=== PATIENT | male | born 1970 | race Caucasian/White ===

== ENCOUNTER → 2017-08-29 11:28 | Outpatient (CLI) | payer MEDICAID, SELFPAY ==
[2017-08-29 14:12] VITALS: BP 135/88; PULSE 86; RESP 17; TEMP 37.3; O2SAT 97; BMI 20.3
--- NOTE | 2017-08-29 14:37 | SDCEKG_ITS ---
Test Reason : Blood Pressure : / mmHG Vent. Rate : 080 BPM Atrial Rate : 080 BPM P-R Int : 146 ms QRS Dur : 094 ms QT Int : 346 ms P-R-T Axes : 079 043 068 degrees QTc Int : 399 ms Normal sinus rhythm Possible Left atrial enlargement Borderline ECG Confirmed by GIULIANA QUINTEROS, SALVATORE ([id number]), news videotape editor SIL CARNEY ([id number]) on 08/30/2017 9:09:48 AM Referred By: Chi Zambrano Confirmed By:SALVATORE GIORDANO MD
[2017-08-29 15:04] LABS: Absolute Lymphocyte Count 1.58 X10^3/ul (0.83-4.51); Absolute Neutrophil Count 4.8 X10^3/uL (2.0-7.7); Basophil# 0.03 X10^3/uL; Basophil% 0.4 % (0-1); Eosinophil# 0.12 X10^3/uL; Eosinophils% 1.7 % (0-5); Hematocrit 43.2 % (40-54); Hemoglobin 14.5 g/dl (13.0-16.5); Lymphocyte # 1.58 X10^3/ul (4.0); Mean Corp Hgb Conc 33.6 g/gl (32-36); Mean Corpuscular Hgb 30.1 pg (27.0-32.0); Mean Corpuscular Volume 89.6 fL (80-94); Mean Platelet Vol. 10.7 fl (6.2-12.0); Monocyte# 0.69 X10^3/uL; Monocyte% 9.6 % (0-10); Neutrophil # 4.76 X10^3/uL (2.7-7.7); Neutrophil % 66.2 % (47-70); POSITIVE COUNT NO; POSITIVE DIFFERENTIAL NO; POSITIVE MORPHOLOGY NO; Platelet Count 228 K/mm3 (150-450); RBC Distribution Width CV 12.6 % (11.6-14.6); RBC Distribution Width SD 41.1 fl (35.1-43.9); Red Blood Count 4.82 M/mm3 (4.6-6.2); White Blood Count 7.2 K/mm3 (4.4-11.0)
[2017-08-29 15:31] LABS: Anion Gap 3 (5-15); BUN 18 mg/dL (7-18); BUN/Creat Ratio 19.1 RATIO (10-20); Calcium,Total 9.5 mg/dL (8.5-10.1); Chloride 101 mmol/L (98-107); Creatinine, Serum 0.94 mg/dL (0.70-1.30); EST Glomerular Filtration Rate 91 mL/min (>60); Est Glom Filt Rate - Afr Amer 110 mL/min (>60); Glucose 86 mg/dL (74-106); Sodium Level 138 mmol/L (136-145)
--- NOTE | 2017-09-01 15:46 | CASEMGMT ---
RN JENNIFER attempted to call patient regarding discharge needs after upcoming surgery. No answer, voice message left with return contact information. Per the preadmission assessment patient plans to return home at discharge, has walker and crutches, and mother can assist with care. ROWAN RODRIGUEZ will follow up with patient after surgery and will assist with discharge needs.
[2017-09-05] VITALS (23 sets, daily range): BP systolic 101–141; BP diastolic 62–97; PULSE 64–120; RESP 16–18; TEMP 36.2–37.4; O2SAT 98–100; BMI 20.3
[2017-09-05] MEDS: Celecoxib 200 MG Capsule 400 MG PO (11:23)
[2017-09-05] MEDS: Acetaminophen 500 MG Tablet 1000 MG PO (11:23)
[2017-09-05] MEDS: oxyCODONE HCl Cr 10 MG Tablet PO (11:24)
[2017-09-05] MEDS: Cefazolin 2 GM in 0.9% Normal Saline 100 ML IV (14:46)
--- NOTE | 2017-09-05 15:07 | ECHOD_ITS ---
Reason For Study: arrhythmia Procedure This was a 2D Doppler, Color Flow transthoracic echocardiogram. The exam was of fair technical quality due to diminished acoustic windows. The study was technically difficult. Exam performed in PACU. Left Ventricle Normal LV size. Left ventricular systolic function is normal. The estimated ejection fraction is 55 %. Unable to assess diastolic dysfunction due to arrhythmia. No regional wall motion abnormalities noted. Right Ventricle Normal RV size. Normal systolic function. Atria Normal left atrium. Normal right atrium. No doppler evidence for ASD. Mitral Valve There is no mitral annular calcification. Normal mitral valve. Trivial mitral valve insufficiency. Tricuspid Valve Normal tricuspid valve. Trivial tricuspid valve insufficiency. Right ventricular systolic pressure estimated to be 23 mmHg. Aortic Valve Trisinus/trileaflet aortic valve. Mild focal aortic valve thickening. Pulmonic Valve The pulmonic valve is not well visualized. Great Vessels Normal aortic root. Pericardium/Pleural No pericardial effusion. MMode/2D Measurements & Calculations LVIDd: 4.7 cm IVSd: 0.93 cm LVOT diam: 2.4 cm LVIDs: 3.6 cm LVPWd: 0.91 cm LVOT area: 4.6 cm2 RVDd: 2.8 cm FS: 23.7 % Ao root diam: 3.5 cm LAV(MOD-bp): 39.3 ml LA A4 area: 15.0 cm2 LAV(MOD-bp) Indexed: 19.6 ml/m2 LAV(MOD-sp2): 39.9 ml LAV(MOD-sp4): 35.4 ml RA A4 area: 16.8 cm2 Doppler Measurements & Calculations MV E max hema: 88.4 cm/sec Ao V2 max: 107.1 cm/sec LV V1 max: 100.1 cm/sec Ao max P.6 mmHg LV V1 max P.0 mmHg DEAN(V,D): 4.3 cm2 PA V2 max: 74.0 cm/sec TR max hema: 225.6 cm/sec TR max P.4 mmHg Interpretation Summary The study was technically difficult. Left ventricular systolic function is normal. The estimated ejection fraction is 55 %. Trivial mitral valve insufficiency. Trivial tricuspid valve insufficiency. Mild focal aortic valve thickening. Right ventricular systolic pressure estimated to be 23 mmHg. Unable to assess diastolic dysfunction due to arrhythmia. Ordering Physician: Don Sears Referring Physician: Chi Zambrano Performed By: Lesly Medrano, DEVEN, RVT
[2017-09-05 15:52] LABS: Anion Gap 7 (5-15); BUN 11 mg/dL (7-18); BUN/Creat Ratio 9.9 RATIO (10-20); Calcium,Total 9.2 mg/dL (8.5-10.1); Chloride 106 mmol/L (98-107); Creatinine, Serum 1.11 mg/dL (0.70-1.30); EST Glomerular Filtration Rate 76 mL/min (>60); Est Glom Filt Rate - Afr Amer 91 mL/min (>60); Glucose 80 mg/dL (74-106); Potassium 4.5 mmol/L (3.5-5.1); Sodium Level 143 mmol/L (136-145)
--- NOTE | 2017-09-05 16:45 | SUR.PHASEI ---
Addendum entered by Temi Elizondo 09/05/17 16:47: BETWEEN 15:30 AND 1600, PATIENT HAD EKG WITH RHYTHM STRIP, CARDIAC ECHO AND CMP LAB WORK DRAWN. Original Note: Addendum entered by Temi Elizondo 09/05/17 16:47: Original Note: AT APPROXIMATELY 1630, PATIENT CONVERTED TO SINUS RHYTHM, RATE 60s. PATIENT RESTING COMFORTABLY WITH NO C/O PAIN OR SOB
[2017-09-05] MEDS: Metoprolol Tartrate 5 MG/5 ML Vial IV (17:40)
--- NOTE | 2017-09-05 18:04 | CON.PCM_ITS ---
Problem List (1) SVT (supraventricular tachycardia) Status: Acute (2) Atrial fibrillation Status: Chronic Qualifiers: Atrial fibrillation type: paroxysmal Qualified Code(s): I48.0 - Paroxysmal atrial fibrillation Reason for Consult Date of Consultation: 09/05/17 History of Present Illness: The patient is a 47 year old white male with a past cardiovascular history which has included underlying paroxysmal atrial fibrillation who now presents for evaluation of supraventricular tachycardia. The patient has previously been followed by the [facility] for concerns of lone paroxysmal atrial fibrillation. It appears that0 08/27/2004 he underwent a transthoracic echocardiogram. His left ventricle was thought to be normal with an LVEF of 60% . The left atrial cavity was considered top normal. There was trivial MR. The conclusion was normal LV size, systolic function, and diastolic function; normal study. He was subsequently evaluated in cardiovascular consultation by Dr. Montague at that time. Based upon his impression he had lone paroxysmal atrial fibrillation which was totally suppressed on small dose of daily beta-magno therapy. He considered contributing factors which included concerns of moderate alcohol use at the time. He was recommended for avoidance of alcohol, continued medical management, and depending upon his course consideration for anticoagulant therapy. The patient states that over a period of time he found that his episodes became less and less frequent. He found that if he did not have adequate oral intake, coupled with his beta-magno, that he became somewhat hypotensive and lightheaded and/or sleepy . He was subsequently able to discontinue his beta- magno. He states he has been without recurrent rhythm disturbances and without the need for additional medical therapy for quite some time now. To the best of his knowledge she has had no other cardiovascular condition. He states that he has been avoiding any alcohol intake. He does know that if he does not and eat frequent meals that he can sense, sometimes, palpitations. He states in the past he was told to perform vasovagal maneuvers which sometimes would help interrupt his elevated heart rate He has been undergoing evaluation care for a left hip related issue which he states is a hereditary issue with an osteoarthritis. He was brought to the hospital today for left hip replacement surgery. He states he has been since prior to midnight last night. He was being prepared with his epidural for spinal anesthesia. He was subsequently noted on cardiac rhythm strip to develop an underlying narrow complex regular tachycardia at approximately 150 bpm thought compatible with an underlying SVT. According to Dr. Fink of anesthesiology he was treated with adenosine 12 mg IV push ?1 and had abrupt termination to sinus rhythm. This suggested an underlying reentry mechanism tachycardia. However he was subsequently noted to have recurrence of an underlying tachycardia. He was then treated with IV Lopressor 5 mg ?1. During that time his heart rate went up and then subsequently began to decline. He was then thought to be in a sinus tachycardia at approximately 115-120 bpm. His surgery was canceled and he was returned to the recovery area. He was then allowed to have oral fluids. After drinking oral fluids he was noted to have again abrupt termination, spontaneously, to what appeared to be normal sinus rhythm with ventricular rates of 60-70 bpm. However, he was subsequently noted to reenter an underlying tachycardia at approximately 115 bpm appearing compatible with an underlying ectopic atrial rhythm/tachycardia. During this time he maintain adequate blood pressure. He denied any obvious palpitations. He denied any obvious chest discomfort or difficulty breathing. He continued to recover from his spinal anesthesia with noticing return of sensation in his lower back and hips. As he was noted to return to an underlying narrow complex regular tachycardia dysrhythmia he underwent further evaluation. This included laboratory studies. He had no obvious electrolyte dysfunction. His troponin I level was negative. He also had a transthoracic echocardiogram. This demonstrated the following results. Technically diminished quality study: Left ventricular systolic function considered normal with an LVEF of 55%; trivial MR; trivial TR ; mild focal aortic valve thickening; estimated RV systolic pressure 23 mmHg; unable to assess diastolic dysfunction due to arrhythmia He was maintaining a narrow complex regular tachydysrhythmia he underwent additional evaluation with carotid artery auscultation. This was thought to be negative for any obvious carotid artery bruits. Thus, he underwent evaluation with carotid artery massage. This was performed bilaterally without any obvious interruption of his underlying cardiac tachydysrhythmia. He was then treated with additional IV Lopressor 5 mg IV push ?1. He had no significant alteration in his underlying cardiac rate and rhythm or blood pressure. He was then treated with adenosine 12 mg IV push ?1. He was noted to have abrupt termination of his underlying narrow complex regular tacky dysrhythmia, occurring at approximately 115 bpm, into an underlying normal sinus rhythm between 60 and 70 bpm. He then appeared to remain in normal sinus rhythm without adequate blood pressure with no other obvious associated symptoms or complaints. Past Medical History Allergies/Adverse Reactions: Allergies No Known Allergies Allergy (Verified 08/29/17 14:09) Home Medications: Ambulatory Orders Medication Instructions Recorded Ibuprofen 200 mg PO PRN PRN 08/29/17 traMADol [Ultram (G)] 100 mg PO Q6H PRN PRN 08/29/17 Past Medical History (Chronic Problems): Chronic Problems Atrial fibrillation (Chronic) Smoking Status: Never smoker Alcohol: None Drugs: None Review of Systems - Review of Systems General: Denies: Fever, Night Sweats, Fatigue Cardiovascular: Denies: Chest Discomfort, Shortness of Breath, Orthopnea, PND, Peripheral Edema, Palpitations, Lightheadedness, Dizziness, Near Syncope, Syncope Respiratory: Denies: Cough, Sputum Production, Hemoptysis Gastrointestinal: Denies: Hematemesis, Hematochezia, Melena Genitourinary: Denies: Dysuria, Hematuria Skin: Denies: Rash Subjectve: This is a 47-year-old thin white male who appears resting comfortably in no acute distress. Objective: Vital Signs Temp Pulse Resp BP Pulse Ox 97.2 F L 70 16 118/70 100 09/05/17 15:10 09/05/17 17:00 09/05/17 17:00 09/05/17 17:00 09/05/17 17:00 Oxygen Flow Rate (L/min) 2 Oxygen Delivery Method Room Air Weight: 162 lb 11.218 oz Body Mass Index (BMI) 20.3 General: Awake, Alert, Oriented x 3, Cooperative, No Acute Distress HEENT: Atraumatic, PERRL, EOMI, Sclera Non Icteric Oral: Moist Mucosa Neck: Supple, Good ROM, No JVD Lungs: Clear to auscultation Cardiovascular: Regular Rhythm, Normal S1, Normal S2 Vascular: No Carotid Bruits Abdomen: Bowel Sounds Present, Soft, Non Tender Extremities: No Cyanosis, No Clubbing, No edema 09/05/17 15:22: Sodium 143, Potassium 4.5, Chloride 106, Carbon Dioxide 30.0, Anion Gap 7, BUN 11, Creatinine 1.11, Est GFR (MDRD) Af Amer 91, Est GFR (MDRD) Non-Af 76, BUN/Creatinine Ratio 9.9 L, Glucose 80, Calcium 9.2, Magnesium 2.0, Troponin I < 0.02 Rhythm: As noted above EKG: Preoperative 12-lead electric cardiogram from 08/29/2017 demonstrated normal sinus rhythm with possible left atrial enlargement ECHO: As noted above 09/05/2017: Technically diminished quality study: Left ventricular systolic function considered normal with an LVEF of 55%; trivial MR; trivial TR; mild focal aortic valve thickening; estimated RV systolic pressure 23 mmHg; unable to assess diastolic dysfunction due to arrhythmia Assessment/Plan 1. Supraventricular tachycardia (reentry mechanism) The patient does appear to have concerns of an underlying supraventricular tachycardia. The etiology is unclear although though there are concerns as to whether this is related to his underlying history of tachydysrhythmias as well as being exacerbated by his n.p.o. status and/or potentially his elevated adrenaline type status secondary to his anxiety of his pending surgical procedure. He was treated with IV adenosine which did reportedly convert him to sinus rhythm. He then returned with intermittent episodes of underlying tachydysrhythmias appearing compatible, based on altered P-wave morphology, possible ectopic atrial rhythm/tachycardia. During this time he had no obvious symptoms or complaints. His blood pressure was maintained. As noted above he received additional medical management with IV Lopressor without significant change in his underlying rate and rhythm her blood pressure. Thus he received another attempt at adenosine 12 mg IV push ?1. He then had abrupt termination of his narrow complex tachydysrhythmia to normal sinus rhythm with ventricular rates between 60 and 70 bpm. He had a follow-up 12-lead ECG that demonstrated normal sinus rhythm with no acute ECG changes. The present time felt the patient should return to an underlying rate limiting medication. As he did not appear to respond to his IV beta-magno therapy today it was felt reasonable that he have an attempt at a calcium channel antagonist. Hopefully this will help maintain rate and rhythm control. It was not felt that he needed to be immediately placed on additional antiarrhythmic therapy. However, it was felt the patient should have continued outpatient cardiovascular follow-up. This would include consideration for EP consultation for EPS/RFA. 2. Paroxysmal atrial fibrillation The patient has a history of paroxysmal atrial fibrillation as noted above. He has been evaluated and treated as noted above. He did not appear to have recurrent paroxysmal atrial fibrillation this day. It appeared his cardiac dysrhythmias day, especially based upon his response to IV adenosine therapy, was more related to an underlying reentry mechanism tachydysrhythmia. He will continue further evaluation as deemed appropriate. He will continue medical management as noted above. Overall, the tentative plan, as long as the patient remains without obvious symptoms, in sinus rhythm, and hemodynamically stable, from a cardiac standpoint , he would be placed on oral medical management as noted above with plans for future outpatient cardiovascular follow-up and referral to electrophysiology for consideration for EPS/RFA. In the interim, based upon the information above, if the patient remains symptomatically and hemodynamically stable on his medications, he should be able to proceed with his orthopedic surgery procedure barring unforeseen events. He would require continued monitoring of his cardiac rate, rhythm, and blood pressure during and after his procedure. He should continue his medical therapy pre and post procedure as best as possible. Comment: The patient's case has been discussed and reviewed and length with Dr. Fink of anesthesiology. Comment: Time involved in the patient's evaluation and care: 90 minutes.
[2017-09-05] MEDS: Adenosine 6 MG/2 ML Syringe 12 MG IV (18:10)
[2017-09-05] MEDS: dilTIAZem CD 120 MG Capsule PO (19:05)
== END ==
PROVIDERS: Anesthesiology; Family Provider Family Medicine Geriatric Medicine; PCP Family Medicine Geriatric Medicine; Visit Provider Specialist
PROC: (CPT 27284; principal; 2017-09-05 12:45)
DX: I47.1 Supraventricular tachycardia (principal); I48.0 Paroxysmal atrial fibrillation; M16.12 Unilateral primary osteoarthritis, left hip
CPT/HCPCS: 36415; 80048; 82040; 83735; 84484; 85025; 87077; 87081; 93005; 93306; J7120; Q9957; J0153; J2405

== ENCOUNTER → 2017-08-31 08:53 | Outpatient (CLI) | payer MEDICAID, SELFPAY ==
[2017-08-31 12:31] LABS: AST(SGOT) 15 U/L (15-37); Alanine Aminotransfer ALT/SGPT 21 U/L (16-61); Albumin, Serum 4.3 g/dL (3.2-5.0); Alkaline Phosphatase 64 U/L (45-117); Bilirubin, Direct 0.12 mg/dL (0.00-0.30); Globulin 3.5 g/dL (2.2-4.2); Protein, Total 7.8 g/dL (6.4-8.2); Thyroid Stim Hormone (TSH) 4.15 uIU/mL (0.358-3.74)
[2017-08-31 12:38] LABS: International Normalized Ratio 1.1; Partial Thromboplast Time 30.8 Seconds (24.1-36.2); Prothrombin Time (Protime)PT. 14.1 SECONDS (11.7-14.9)
== END ==
PROVIDERS: Family Provider Family Medicine Geriatric Medicine; PCP Family Medicine Geriatric Medicine; Visit Provider Family Medicine Geriatric Medicine
DX: Z01.818 Encounter for other preprocedural examination (principal); R53.83 Other fatigue
CPT/HCPCS: 36415; 80076; 84443; 85610; 85730

== ENCOUNTER 2017-09-20 06:02 | Inpatient (IN) | payer MEDICAID, SELFPAY ==
--- NOTE | 2017-09-15 15:29 | CASEMGMT ---
ROWAN RODRIGUEZ attempted to call patient regarding discharge needs after upcoming surgery. No answer and voice message left with return contact information. Per pre-admission assessment patient has crutches and walker at home and plans to return home with assistance from his mother. ROWAN RODRIGUEZ will follow up with patient after surgery and will assist with discharge needs.
[2017-09-20] VITALS (17 sets, daily range): BP systolic 105–133; BP diastolic 62–90; PULSE 64–92; RESP 16–18; TEMP 35.9–36.9; O2SAT 96–100; BMI 20.3
--- NOTE | 2017-09-20 | HIP_PTH ---
PATIENT: ALIVIA ZAVALA LOC: [facility] U#:[id number] AGE/SX: 47/M ROOM: MN314 RE09/20/[address]: Dr. Semaj Duncan DO : 1970 BED: 1 DIS: 09/21/2017 SPEC #: [id number] RECD: 09/20/17 15:37 STATUS: VAL REQ #: [id number] DEONNA: 09/20/17 00:[address]: Chi Zambrano DEPT: SURGICAL PATHOLOGY RECD BY: Nils Campos ENTERED: 09/21/17 08:13 SP TYPE: TOTAL HIP OTHR DR: MD Dr. Semaj Schaefer DO Dr. Steven Widmer, MD Dr. Tai Chi Kwok, MD Tissues: Hip, NOS Procedures: Decalcification bone/plaque Surgery Specimen Level IV Comments: @ Ordering doctor for DEC edited from to DR.SWIDME Curtis by SAÚL at 09/21/17 1404 @ Ordering doctor for SUIV edited from to @ by SAÚL at 09/21/17 1407 @ Submitting doctor edited from to @ by SAÚL at 09/21/17 1404 HEADER OPERATION: Left total hip anterior approach PRE-OP DIAGNOSIS: Osteoarthritis left hip TISSUE SUBMITTED: Femoral head debrided bone and tissue - left MICROSCOPIC DIAGNOSIS Femoral head bone and tissue, left, total hip replacement/resection: Femoral head with degenerative osteoarthritic changes. ANDREE:bekah 09/28/17 MICROSCOPIC DESCRIPTION Slides are reviewed. GROSS DESCRIPTION Received is one container designated femoral head, debrided bone and tissue, left. The specimen consists of a femoral head measuring 7 x 6 x 5.5 cm. Also present in the container are multiple detached pieces of bone most likely portion of femoral neck measuring in aggregate 9 x 5 x 3 cm. Also present in the container are multiple pieces of bone reamings and smaller detached pieces of bone measuring in aggregate 10 x 8 x 3 cm. No soft tissue is identified. The articular surface displays prominent osteophyte formation, eburnation and bone erosion. Architectural Project Manager sections are submitted in two cassettes after decalcification as follows: 1 ? bone reamings, 2 ? femoral head. / ANDREE:bekah 09/21/17 TC:5 CPT: 12745, 14060
[2017-09-20] MEDS: oxyCODONE HCl Cr 10 MG Tablet PO (07:14)
[2017-09-20] MEDS: Celecoxib 200 MG Capsule 400 MG PO (07:14)
[2017-09-20] MEDS: Acetaminophen 500 MG Tablet 1000 MG PO ×3 (07:14→21:54)
[2017-09-20] MEDS: Lactated Ringers 1,000 ML 999 ML IV (07:34)
--- NOTE | 2017-09-20 08:24 | RAD_ITS ---
STUDY: X-RAY - PELVIS AND LEFT HIP REASON FOR EXAM: Male, 47 years old. Total hip replacement. TECHNIQUE: Radiological exam, hip, unilateral, with pelvis when performed; 1 view COMPARISON: None. FINDINGS: Intraoperative imaging provided for left total hip replacement. There is good alignment. RAD/Hip 1 view with Pelvis IMPRESSION: Left total hip replacement. There is good alignment. Electronically Signed: Kush Vargas MD at 10:39 EDT Tel [phone], Service support ,
[2017-09-20] MEDS: Cefazolin 2 GM in 0.9% Normal Saline 100 ML IV (08:34)
--- NOTE | 2017-09-20 10:38 | PCM.OPRPT ---
Report of Operation Date of Procedure: 09/20/17 Pre-Operative Diagnosis: Left hip hypertrophic primary osteoarthritis Post-Operative Diagnosis: Left hip hypertrophic primary osteoarthritis Surgery/Procedure Performed:: Left direct anterior total hip replacement Description of Surgical Findings:: Stable hip. Left leg was left slightly shorter on examination secondary to chronic 15? knee contracture. Radiographs showed equal leg length based on lesser trochanters [facility] director: Bhavana Kate Type of Anesthesia:: Spinal Anesthesiologist: Frederic Leon Special Medications: 2 g Ancef, 1 g TXA at incision, 1 g TXA closure, 10 mg Decadron, joint cocktail (5 mg Duramorph, 30 mL of 0.5% Ropivicaine, 1000 units of epinephrine, 30 mg of Toradol) Specimen's removed: Bone fragments were sent Estimated Blood Loss (mL): 250 Fluids Replaced: 1200 mL crystalloid Description of Procedure: Components used: 1. Accolade 2 Lisa femoral stem size 8 127? 2. Lisa trident acetabular shell size 64 mm 3. Guion X3 polyethylene H 4. Guion Biolox delta 360mm, []mm femoral head Brief history operative indications: 47 yo m who failed conservative measures for their hip osteoarthritis. X-rays were consistent with osteoarthritis including joint space narrowing, osteophyte formation and subchondral cysts. Total hip replacement was discussed with the patient with risks and benefits including but not limited to blood loss, DVTs, PEs, neurovascular damage, dislocation, general risks of anesthesia including loss of life. Patient demonstrated an understanding medical clearance is obtained the patient was consented for surgery. Procedure: On the date of procedure the patient's L hip was marked in the preoperative area. Patient was then taken back to the operating room where anesthesia assumed control of the C-spine and airway and administered anesthetic. Patient was transferred to the operating table and placed in the supine position. The hips were placed at the break of the bed and a sacral bump was placed. The L lower extremity was then prepped out in a sterile fashion using chlorhexidine while the surgeon scrubbed. The PA was vital in the positioning of the patient. Upon reentering the room the L lower extremity was draped in the standard orthopedic fashion and the incision was marked. A timeout was called and everyone agreed upon the side, the site, the procedure be performed, antibody given, and patient's identity. At this time incision was made through skin, subcutaneous tissue, and fat down to fascia. The fascia was then incised and the TFL was retracted laterally. A retractor was placed on the lateral border of the femoral neck. Attention was directed to the inferior portion of the approach and all crossing vessels were identified and appropriately coagulated. A retractor was then placed on the medial portion of the femoral neck. The anterior capsule was then cleared of all soft tissue and then H shaped capsulotomy was made. The retractors were then placed inside the capsule. The femoral neck was identified and a cleanup cut was made. At this time a power corkscrew was used to remove the femoral head. Attention was then turned toward the acetabulum where the soft tissues were appropriately retracted and the acetabulum was sequentially reamed to 63 mm. A 64 mm cup was then selected and impacted into place. Acetabular liner was impacted into place and locking mechanism was verified. The position of the acetabular cup was then verified under live fluoroscopy. Attention was then turned to the femur. Soft tissue releases on the medial and lateral femoral neck were appropriately done, the leg was externally rotated and lateralized. A Crawford retractor was placed medially and proximally to the greater trochanter this allowed appropriate visualization and exposure of the femoral canal. Rongeour was then used to remove excess lateral bone. A canal finder and entry broach were used to open the proximal canal. Once we verified we were down the femoral canal we subsequently broached up to a size 8 femur. The appropriate neck was placed in the previously selected head was trialed with a 0 mm neck. Traction was pulled and the hip was reduced with internal rotation. Once it was appropriately reduced and stability was checked. There was minimal shuck, equal leg lengths and appropriate stability with hyperextension and external rotation as well as with 90? flexion and internal rotation. Fluoroscopy was then also used to verify the position of the components and leg lengths using the contralateral side for comparison. The trial components were then dislocated the proximal femur was again exposed and the components were removed from the wound. The final components were verified and opened. The wound was copiously irrigated out with normal saline. The acetabulum was checked for any residual debris. The final components were placed and impacted. Traction and internal rotation were again used to reduce the hip. After adequate reduction the hip remained stable with appropriate leg lengths. The final components were once again checked with live fluoroscopy and were found to be satisfactory. The wound was then copiously irrigated with normal saline once more, and hemostasis was obtained. Closure was then done using #1 Vicryl runner to close the fascia. A 2-0 vicryl interuppted sutures were used to close the subcutaneous skin. A 3-0 Monocryl and Steri-Strips were used for final skin closure. A Silverlon dressing was placed. Patient was awakened by anesthesia and transferred to the rcape coral. Patient was then transferred to the PACU for recovery. Postoperative plan: Patient will get 24 hours postop antibiotics. Patient will get in-house physical therapy and will be weight-bear as tolerated. Patient will follow up in office in 2 weeks for a wound check and x-rays. Due to the patient's hypertrophic osteoarthritis we will place him on Celebrex 200 mg twice daily for the first 2 weeks followed by 20 mg daily for an additional 4 weeks. To be stopped at 6 weeks postop. Grafts/Implants Used: Lisa Accolade 2 - Complications none - Admit VTE Documentation VTE Present on Admission: No VTE Mechan Device Prophylaxis: SCD's, Thigh High RICH Hose VTE Pharm Prophylaxis ordered?: Yes
--- NOTE | 2017-09-20 11:00 | RAD_ITS ---
STUDY: X-RAY - PELVIS AND LEFT HIP REASON FOR EXAM: Male, 47 years old. Total hip replacement. TECHNIQUE: Radiological exam, hip, unilateral, with pelvis when performed; 2 or 3 views. COMPARISON: None. FINDINGS: The patient is status post left total hip replacement. There is good alignment. Postoperative soft tissue changes. Moderate degree of osteoarthritis of the right hip joint with evidence of right femoral acetabular impingement. RAD/Hip Min 2 Views (Portable) IMPRESSION: Status post left total hip replacement. There is good alignment. Osteoarthritis of the right hip joint with femoral acetabular impingement Electronically Signed: Kush Vargas MD at 13:24 EDT Tel [phone], Service support ,
[2017-09-20] MEDS: Cefazolin 1 GM/50 ML BAG IV ×2 (14:18→21:54)
[2017-09-20] MEDS: Famotidine 20 MG Tablet PO (14:19)
--- NOTE | 2017-09-20 16:17 | PN_ITS ---
Subjective: Pt resting comfortably in chair at bedside. He has already ambulated down the arora without difficulty. He has no pain. He is relieved that the preop pain is gone. He also has chronic numbness and tingling 2/2 disc issues in his left leg and foot which has improved since surgery. He has no nausea or vomiting, no SOB or cough. He has no racing, palp, SOB, dizziness, LH. He had surgery cancelled on September 05 to when he went into SVT. He followed up with [facility] who placed him on cartia and scheduled him to have an ablation later this month, diagnosing him with an ectopic rhythm. He has not had any issues since starting cartia. He has no CP. He denies other medical problems. No prior difficulties with other surgeries in his past. - Physical Exam General: Alert, Oriented x3, Cooperative HEENT: Atraumatic, PERRLA, EOMI, Normocephalic Neck: Supple, No JVD, Negative Carotid Bruits Lungs: Clear to auscultation, Normal air movement Cardiovascular: Regular rate, No murmurs Abdomen: Bowel Sounds Present, Soft, Non Tender Extremities: No edema, Capillary Refill Less than 3 Seconds Skin: No rashes, No breakdown Musculoskeletal: No Tenderness to Palpation of Joints or Extremities Neurological: Cranial nerves II-XII grossly intact Psych/Mental Status: Normal Affect, Appropriate, Alert and oriented to time, place, person, mood and affect Vital Signs Temp Pulse Resp BP Pulse Ox 97.3 F L 79 18 120/73 100 09/20/17 14:07 09/20/17 14:07 09/20/17 14:07 09/20/17 14:07 09/20/17 14:07 Oxygen Delivery Method Room Air Weight: 71.8 kg Body Mass Index (BMI) 20.3 Intake and Output for Last 24 Hours 09/18/17 09/19/17 09/20/17 23:59 23:59 23:59 Intake Total 1500 / 1500 Balance 1500 / 1500 Medical Necessity - Tobacco Use Smoking Status: Never smoker Assessment/Plan 1. Left hip arthropathy s/p left total hip post op d#[address] Zambrano - minimal pain, pt ambulatory. No post op complications so far. 2. Hx SVT ectopic rhythm at last surgical attempt- continue cartia. Outpatient follow up at [facility] for ablation. Pt of Dr. Mittal. VSS no complications so far. DVT ppx: per ortho This patient was seen by Selvin Trevino PA-C under the supervision of Dr. Thakkar.
[2017-09-20] MEDS: Aspirin 325 MG Tablet PO (16:22)
[2017-09-20] MEDS: Lactated Ringers 1,000 ML 125 ML IV ×2 (16:22→21:54)
[2017-09-20] MEDS: Senna/Docusate Sodium 1 Tablet 2 TABLET PO (21:53)
[2017-09-20] MEDS: traMADol 50 MG Tablet PO (21:53)
[2017-09-20] MEDS: Celecoxib 200 MG Capsule PO (21:54)
[2017-09-21] MEDS: 0.9% NaCl Peripheral Flush Adult/Peds IV ×2 (03:11→08:53)
[2017-09-21] MEDS: Ketorolac 15 MG/ML Vial IV (03:11)
[2017-09-21 03:13] VITALS: BP 100/50; PULSE 79; RESP 18; TEMP 37.1; O2SAT 100
[2017-09-21 05:43] LABS: Hematocrit 30.9 % (40-54); Hemoglobin 10.1 g/dl (13.0-16.5); Mean Corp Hgb Conc 32.7 g/gl (32-36); Mean Corpuscular Hgb 30.1 pg (27.0-32.0); Mean Platelet Vol. 10.6 fl (6.2-12.0); Platelet Count 196 K/mm3 (150-450); RBC Distribution Width CV 12.4 % (11.6-14.6); RBC Distribution Width SD 40.2 fl (35.1-43.9); Red Blood Count 3.36 M/mm3 (4.6-6.2); White Blood Count 10.1 K/mm3 (4.4-11.0)
[2017-09-21 05:45] LABS: Scan Indicated on CBC? Y/N NO
[2017-09-21 06:03] LABS: Anion Gap 6 (5-15); BUN 16 mg/dL (7-18); BUN/Creat Ratio 23.5 RATIO (10-20); Calcium,Total 8.2 mg/dL (8.5-10.1); Chloride 106 mmol/L (98-107); Creatinine, Serum 0.68 mg/dL (0.70-1.30); EST Glomerular Filtration Rate 133 mL/min (>60); Est Glom Filt Rate - Afr Amer 160 mL/min (>60); Estimated Creatinine Clearance 137.85 ml/min; Glucose 97 mg/dL (74-106); Potassium 4.4 mmol/L (3.5-5.1); Sodium Level 141 mmol/L (136-145)
[2017-09-21] MEDS: traMADol 50 MG Tablet PO (06:09)
[2017-09-21] MEDS: Acetaminophen 500 MG Tablet 1000 MG PO ×2 (06:09→14:02)
[2017-09-21 08:49] VITALS: BP 132/83; PULSE 111; RESP 18; TEMP 36.9; O2SAT 99
[2017-09-21] MEDS: Ondansetron 4 MG/2 ML Vial IV (08:53)
[2017-09-21] MEDS: Famotidine 20 MG Tablet PO (08:57)
[2017-09-21] MEDS: dilTIAZem CD 120 MG Capsule PO (08:57)
[2017-09-21] MEDS: Aspirin 325 MG Tablet PO (08:57)
[2017-09-21] MEDS: Celecoxib 200 MG Capsule PO (08:57)
--- NOTE | 2017-09-21 09:54 | PCM.PN.ORT ---
Subjective: The patient was sitting in bed upon examination. Patient denies any chest pain, shortness of breath, dizziness, lightheadedness, or calf pain. Pain is controlled on medications. No adverse overnight events. Patient did have nausea/vomiting this morning but has improved with medication. Patient has tolerated walking with therapy and states he has walked further with therapy then he has ever done before surgery. Patient is pleased with outcome of surgery. Objective: Vital signs stable and afebrile. Patient is able to plantarflex and dorsiflex actively. Sensation is intact to light touch to saphenous, sural, superficial and deep peroneal, and tibial distribution. Dressing is clean dry and intact. Negative Homans bilaterally, negative signs and symptoms of DVT. - Physical Exam General: Alert, Oriented x3, Cooperative, No apparent distress Vital Signs Temp Pulse Resp BP Pulse Ox 98.4 F 111 H 18 132/83 H 99 09/21/17 08:49 09/21/17 08:49 09/21/17 08:49 09/21/17 08:49 09/21/17 08:49 Oxygen Delivery Method Room Air Weight: 71.8 kg Body Mass Index (BMI) 20.3 Intake and Output for Last 24 Hours 09/19/17 09/20/17 09/21/17 23:59 23:59 23:59 Intake Total 2049 2793 / 2793 Balance 2049 2793 / 2793 Laboratory Tests Past 24 Hrs 09/21/17 09/21/17 05:12 05:12 WBC 10.1 RBC 3.36 L Hgb 10.1 L Hct 30.9 L MCV 92.0 MCH 30.1 MCHC 32.7 RDW 12.4 RDW Differential 40.2 Plt Count 196 MPV 10.6 Sodium 141 Potassium 4.4 Chloride 106 Carbon Dioxide 29.0 Anion Gap 6 BUN 16 Creatinine 0.68 L Estim Creat Clear Calc 137.85 Est GFR (MDRD) Af Amer 160 Est GFR (MDRD) Non-Af 133 BUN/Creatinine Ratio 23.5 H Glucose 97 Calcium 8.2 L Medical Necessity - Tobacco Use Smoking Status: Never smoker Assessment/Plan 1. S/P left direct anterior total hip arthroplasty POD #1 2. Continue Pain Medications: Tylenol and tramadol 3. DVT Prophylaxis: Aspirin 325 mg twice daily 4. PT/OT: Weightbearing as tolerated 5. H & H: 10.1/30.9, asymptomatic 6. Encouraged Incentive Spirometry 7. Continue postoperative medical management per medicine 8. Disposition: Plan is for discharge home today. Prescriptions will be E scribed to [facility]. Patient will follow-up per [place] orthopedic postop instructions.
--- NOTE | 2017-09-21 09:57 | PN.ORTHO_ITS ---
Subjective: The patient was sitting in bed upon examination. Patient denies any chest pain , shortness of breath, dizziness, lightheadedness, or calf pain. Pain is controlled on medications. No adverse overnight events. Patient did have nausea/vomiting this morning but has improved with medication. Patient has tolerated walking with therapy and states he has walked further with therapy then he has ever done before surgery. Patient is pleased with outcome of surgery. Objective: Vital signs stable and afebrile. Patient is able to plantarflex and dorsiflex actively. Sensation is intact to light touch to saphenous, sural, superficial and deep peroneal, and tibial distribution. Dressing is clean dry and intact. Negative Homans bilaterally, negative signs and symptoms of DVT. - Physical Exam General: Alert, Oriented x3, Cooperative, No apparent distress Vital Signs Temp Pulse Resp BP Pulse Ox 98.4 F 111 H 18 132/83 H 99 09/21/17 08:49 09/21/17 08:49 09/21/17 08:49 09/21/17 08:49 09/21/17 08:49 Oxygen Delivery Method Room Air Weight: 71.8 kg Body Mass Index (BMI) 20.3 Intake and Output for Last 24 Hours 09/19/17 09/20/17 09/21/17 23:59 23:59 23:59 Intake Total 2049 2793 / 2793 Balance 2049 2793 / 2793 Laboratory Tests Past 24 Hrs 09/21/17 09/21/17 05:12 05:12 WBC 10.1 RBC 3.36 L Hgb 10.1 L Hct 30.9 L MCV 92.0 MCH 30.1 MCHC 32.7 RDW 12.4 RDW Differential 40.2 Plt Count 196 MPV 10.6 Sodium 141 Potassium 4.4 Chloride 106 Carbon Dioxide 29.0 Anion Gap 6 BUN 16 Creatinine 0.68 L Estim Creat Clear Calc 137.85 Est GFR (MDRD) Af Amer 160 Est GFR (MDRD) Non-Af 133 BUN/Creatinine Ratio 23.5 H Glucose 97 Calcium 8.2 L Medical Necessity - Tobacco Use Smoking Status: Never smoker Assessment/Plan 1. S/P left direct anterior total hip arthroplasty POD #1 2. Continue Pain Medications: Tylenol and tramadol 3. DVT Prophylaxis: Aspirin 325 mg twice daily 4. PT/OT: Weightbearing as tolerated 5. H & H: 10.1/30.9, asymptomatic 6. Encouraged Incentive Spirometry 7. Continue postoperative medical management per medicine 8. Disposition: Plan is for discharge home today. Prescriptions will be E scribed to [facility]. Patient will follow-up per [place] orthopedic postop instructions.
--- NOTE | 2017-09-21 10:02 | PCM.DC.THR ---
Discharge Diet: No Restrictions Discharge Activity: May Not Drive - while taking narcotic pain medications. May shower in (days): 1 - Dressing must be intact the skin. Turned dressing away from water Ice area for (Minutes): 20 - Every 1-2 hours while awake Weight Bearing Status: Weight bearing as tolerated Elevate: Operative Extremity Additional Activity Instructions:: Wear elastic stockings for 2 weeks. DO NOT use alcohol with narcotic pain medication. DO NOT make important decisions while taking narcotic medication. If you have problems with taking your medication (rash, itching, nausea, etc.) call the office at once. Call your doctor if your incision/area has: Increased Pain/ Swelling, Increased Redness, Foul Smelling Discharge Call your doctor if you observe: Fever of 101 or Higher Remove Dressing in (days):: 4 - Okay to remove on September 25, 2017 Additional Instructions: Follow [place] orthopedic postop instructions DVT prophylaxis: Patient will take 325 mg aspirin twice daily for the first 2 weeks, at two-week visit will switch over to 81 mg aspirin twice daily for an additional 2 weeks. While taking aspirin continue with famotidine as prescribed. While taking aspirin and Celebrex please continue to take famotidine. If you have any problems with stomach irritation please stop the Celebrex and give our office a call. Allergies/Adverse Reactions: Allergies No Known Allergies Allergy (Verified 09/12/17 10:16) Medications to take at Discharge Diltiazem HCl [Cartia Xt] 120 mg PO DAILY 09/12/17 Acetaminophen [Tylenol] 1,000 mg PO Q8 #90 tab 09/21/17 Aspirin 325 mg PO BIDCM #30 tab 09/21/17 Celecoxib [Celebrex] 200 mg PO BID 14 Days #30 cap 09/21/17 Famotidine [Pepcid] 20 mg PO DAILY #30 tab 09/21/17 Ondansetron [Zofran Odt] 4 mg PO Q8H PRN PRN #20 tab 09/21/17 Senna/Docusate Sodium [Senokot-S] 2 tab PO BID #20 tab 09/21/17 traMADol [Ultram] 50 - 100 mg PO Q6H PRN PRN 7 Days #56 tablet 09/21/17 The following prescriptions were given: traMADol [Ultram] 50 - 100 mg PO Q6H PRN PRN 7 Days #56 tablet PRN Reason: Moderate Pain (4-5/10) Ondansetron [Zofran Odt] 4 mg PO Q8H PRN PRN #20 tab PRN Reason: Nausea/Vomiting Acetaminophen [Tylenol] 1,000 mg PO Q8 #90 tab Famotidine [Pepcid] 20 mg PO DAILY #30 tab Aspirin 325 mg PO BIDCM #30 tab Celecoxib [Celebrex] 200 mg PO BID 14 Days #30 cap Senna/Docusate Sodium [Senokot-S] 2 tab PO BID #20 tab Primary Care Physician: Emile Junior Chi, MD [Primary Care Provider] - Please Follow Up With: physical therapy When: Will get scheduled to begin next week Please Follow Up With: Hawa King When: 10/04/17 @ 4:00 pm
--- NOTE | 2017-09-21 10:19 | CASEMGMT ---
RN CM Face to Face with patient for initial transition planning/care coordination assessment. RN CM introduced self and role at [facility]. Patient sitting in bed, alert and oriented. Patient willing to participate in assessment and is able to answer all questions appropriately. Care providers, pharmacy, and demographics verified. See link attached. Patient wishes to discharge home and wants setup with [facility] for outpatient therapy. Patient states he has no further needs or concerns at this time. RN CM spoke with Drew LOONEY regarding outpatient therapy. PA requested that this RN CM setup first outpatient therapy appt with [facility] for Tuesday 09/26. RN CM called [facility] to setup outpatient therapy appt and first available appt is for 09/28/17 at 1:30. [facility] to contact AAYUSH Hercules and patient regarding appt. CM to follow for discharge planning needs that may arise. Disposition Plan: Patient to discharge home with outpatient therapy, family support, and follow-up plans in place.
[2017-09-21 14:05] VITALS: BP 128/81; PULSE 85; RESP 18; TEMP 36.7; O2SAT 100
--- NOTE | 2017-09-22 15:54 | PCM.PROGNOTE ---
Subjective: The date of this dictation should read 09/21/17: Patient was seen and examined today, he has been discharged this afternoon by orthopedic surgery, patient will be following up with cardiology as an outpatient and will be scheduled for EPS study according to the patient. Patient does not need any medications today, he takes Cartia XL as an outpatient for SVT. - Physical Exam General: Alert, Oriented x3, Cooperative, No apparent distress, Well developed, Well nourished HEENT: Atraumatic, PERRLA, EOMI, Normocephalic Oral: Moist Mucosa Neck: Supple, No JVD, No Nuchal Rigidity, Trachea Midline, Thyroid Normal Size and Texture Lungs: Clear to auscultation, Normal air movement, No rhonchi, No wheeze, No rales Cardiovascular: Regular rate, Regular Rhythm, Normal S1, Normal S2, No murmurs, No Ectopic Activity, PMI Normal, No rub noted, No Gallop Abdomen: Bowel Sounds Present, Soft, Non Tender, Non-Distended Extremities: Capillary Refill Less than 3 Seconds Skin: No rashes Neurological: Cranial nerves II-XII grossly intact, Neuro grossly intact, Sensory exam intact to light touch and pain Psych/Mental Status: Normal Affect, Appropriate, Alert and oriented to time, place, person, mood and affect Vital Signs Temp Pulse Resp BP Pulse Ox 98.0 F 85 18 128/81 H 100 09/21/17 14:05 09/21/17 14:05 09/21/17 14:05 09/21/17 14:05 09/21/17 14:05 Oxygen Delivery Method Room Air Weight: 71.8 kg Body Mass Index (BMI) 20.3 Intake and Output for Last 24 Hours 09/20/17 09/21/17 09/22/17 23:59 23:59 23:59 Intake Total 2049 3193 / 3193 Balance 2049 3193 / 3193 Medical Necessity - Tobacco Use Smoking Status: Never smoker Assessment/Plan #1 paroxysmal SVT-patient will follow up with an 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 Mittal in the office to have this arranged the patient is to remain on his outpatient medication #2 Left hip hypertrophic primary osteoarthritis #3 status post left hip arthroplasty postop day #1 Code Visit Inpatient E&M: 88196 Subs Hosp L2
--- NOTE | 2017-09-22 15:57 | PN_ITS ---
Subjective: The date of this dictation should read 09/21/17: Patient was seen and examined today, he has been discharged this afternoon by orthopedic surgery, patient will be following up with cardiology as an outpatient and will be scheduled for EPS study according to the patient. Patient does not need any medications today , he takes Cartia XL as an outpatient for SVT. - Physical Exam General: Alert, Oriented x3, Cooperative, No apparent distress, Well developed, Well nourished HEENT: Atraumatic, PERRLA, EOMI, Normocephalic Oral: Moist Mucosa Neck: Supple, No JVD, No Nuchal Rigidity, Trachea Midline, Thyroid Normal Size and Texture Lungs: Clear to auscultation, Normal air movement, No rhonchi, No wheeze, No rales Cardiovascular: Regular rate, Regular Rhythm, Normal S1, Normal S2, No murmurs, No Ectopic Activity, PMI Normal, No rub noted, No Gallop Abdomen: Bowel Sounds Present, Soft, Non Tender, Non-Distended Extremities: Capillary Refill Less than 3 Seconds Skin: No rashes Neurological: Cranial nerves II-XII grossly intact, Neuro grossly intact, Sensory exam intact to light touch and pain Psych/Mental Status: Normal Affect, Appropriate, Alert and oriented to time, place, person, mood and affect Vital Signs Temp Pulse Resp BP Pulse Ox 98.0 F 85 18 128/81 H 100 09/21/17 14:05 09/21/17 14:05 09/21/17 14:05 09/21/17 14:05 09/21/17 14:05 Oxygen Delivery Method Room Air Weight: 71.8 kg Body Mass Index (BMI) 20.3 Intake and Output for Last 24 Hours 09/20/17 09/21/17 09/22/17 23:59 23:59 23:59 Intake Total 2049 3193 / 3193 Balance 2049 3193 / 3193 Medical Necessity - Tobacco Use Smoking Status: Never smoker Assessment/Plan #1 paroxysmal SVT-patient will follow up 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 Mittal in the office to have this arranged the patient is to remain on his outpatient medication #2 Left hip hypertrophic primary osteoarthritis #3 status post left hip arthroplasty postop day #1 Code Visit Inpatient E&M: 05763 Subs Hosp L2
== END 2017-09-21 14:30 | disposition home or self-care (01) | DRG 209 ==
LOC: ACINP 06:03 → MS3 08:18
PROVIDERS: Admitting Provider Specialist; Family Provider Family Medicine Geriatric Medicine; PCP Family Medicine Geriatric Medicine; Visit Provider Internal Medicine
PROC: 0SRB049 Replacement of Left Hip Joint with Ceramic on Polyethylene Synthetic Substitute, Cemented, Open Approach (ICD-10-PCS; CPT 27284; principal; 2017-09-20 08:00)
DX: M16.12 Unilateral primary osteoarthritis, left hip (principal); I48.91 Unspecified atrial fibrillation; I47.1 Supraventricular tachycardia; Z79.891 Long term (current) use of opiate analgesic
CPT/HCPCS: 36415; 73501; 73502; 76000; 80048; 85027; 88305; 88311; 97110; 97162; 97165; 97530; 99251; C1776; J7120; A4216; G0463; J2405

== ENCOUNTER 2018-09-28 07:56 | Emergency (ER) | payer SELFPAY ==
[2018-09-28 07:57] VITALS: BP 152/101; PULSE 81; RESP 16; TEMP 36.4; O2SAT 97; BMI 21.7
[2018-09-28] MEDS: Ondansetron ODT 4 MG Tablet PO (08:31)
[2018-09-28] MEDS: diazePAM 2 MG Tablet PO (08:39)
--- NOTE | 2018-09-28 09:03 | ED.VISSUMM ---
- ER Visit Summary Date of Service: 09/28/18 Chief Complaint: [Dizziness and vomiting] History of Present Illness: The patient is a 48 M [presents the emergency department with sudden onset of dizziness upon awakening this morning. Patient states that things were spinning around and round that he had to sit in front of the fan. Patient states that he try to lay back down and when he did he became very nauseated and had some abdominal discomfort had to throw out a window. Patient has had problems with vertigo in the past. Patient also gives a history that is had some chronic left shoulder pain for about 1 year and yesterday started using a new [place] cream directly to the left shoulder and he is not sure if that may have caused the symptoms. States the cream really seems to help his discomfort. He denies any chest pain or shortness of breath. Patient does have a history of paroxysmal A. fib.] Physical Examination: [HEENT-PERRLA, EOMI. Cranial nerves II through XII grossly intact. TMs clear. Mucous membranes moist. No adenopathy. Cardiovascular-regular rate and rhythm without murmur or ectopy Lungs-clear to auscultation, chest wall stable without crepitus or subcu emphysema Abdomen-normoactive bowel sounds, soft, nontender, no rebound or rigidity, no peritoneal signs. Neuro jluu-letvrn-zrmm and heel jones testing within normal limits, negative Romberg, negative , Fundi benign. Upon Hallpike maneuver patient does have symptoms with head turn to the right however there is no significant nystagmus noted. Extremities-intact ?4, normal range of motion, normal pulses, atraumatic] Test Results: [None indicated] Emergency Department Course and Treatment: [She was medicated with Valium and Zofran. He had no further symptoms. I suspect patient likely had vertigo of the benign positional type.] Treatment Plan: [She will be given a prescription for Valium. Patient will be given a referral to neurology for follow-up if symptoms persist.] Disposition: [Discharged home in stable condition.] Impression: [Benign positional vertigo] This note was generated with [employer]ation software. It may contain incorrect words, spelling, and punctuation that were not noted in review of the chart prior to signing ED Disposition - Plan for ED Patient: Referrals: Care Physician,No Primary [Primary Care Provider] -
--- NOTE | 2018-09-28 09:06 | ED.DCSUM_ITS ---
- ER Visit Summary Date of Service: 09/28/18 Chief Complaint: [Dizziness and vomiting] History of Present Illness: The patient is a 48 M [presents the emergency department with sudden onset of dizziness upon awakening this morning. Patient states that things were spinning around and round that he had to sit in front of the fan. Patient states that he try to lay back down and when he did he became very nauseated and had some abdominal discomfort had to throw out a window. Patient has had problems with vertigo in the past. Patient also gives a history that is had some chronic left shoulder pain for about 1 year and yesterday started using a new [place] cream directly to the left shoulder and he is not sure if that may have caused the symptoms. States the cream really seems to help his discomfort. He denies any chest pain or shortness of breath. Patient does have a history of paroxysmal A. fib.] Physical Examination: [HEENT-PERRLA, EOMI. Cranial nerves II through XII grossly intact. TMs clear. Mucous membranes moist. No adenopathy. Cardiovascular-regular rate and rhythm without murmur or ectopy Lungs-clear to auscultation, chest wall stable without crepitus or subcu emphysema Abdomen-normoactive bowel sounds, soft, nontender, no rebound or rigidity, no peritoneal signs. Neuro onif-izhpwg-kjzn and heel jones testing within normal limits, negative Romberg, negative , Fundi benign. Upon Hallpike maneuver patient does have symptoms with head turn to the right however there is no significant nystagmus noted. Extremities-intact ?4, normal range of motion, normal pulses, atraumatic] Test Results: [None indicated] Emergency Department Course and Treatment: [She was medicated with Valium and Zofran. He had no further symptoms. I suspect patient likely had vertigo of the benign positional type.] Treatment Plan: [She will be given a prescription for Valium. Patient will be given a referral to neurology for follow-up if symptoms persist.] Disposition: [Discharged home in stable condition.] Impression: [Benign positional vertigo] This note was generated with [employer] software. It may contain incorrect words, spelling, and punctuation that were not noted in review of the chart prior to signing ED Disposition - Plan for ED Patient: Referrals: Care Physician,No Primary [Primary Care Provider] -
--- NOTE | 2018-09-28 09:06 | ED.DEP ---
ED Disposition - Plan for ED Patient: Instructions: ED BPV Vertigo Prescriptions: Ondansetron [Zofran Odt] 4 mg PO Q8H PRN PRN #10 tab PRN Reason: Nausea Diazepam [Valium] 2 mg PO TID PRN PRN #10 tab PRN Reason: Vertigo Referrals: Care Physician,No Primary [Primary Care Provider] - Edmundo Topete MD [STAFF PHYSICIAN] - 5-7 Days
[2018-09-28 09:21] VITALS: BP 135/97; PULSE 81; RESP 16; O2SAT 97
== END 2018-09-28 09:22 | disposition home or self-care (01) ==
PROVIDERS: Emergency Provider Emergency Medicine
DX: H81.10 Benign paroxysmal vertigo, unspecified ear (principal)
CPT/HCPCS: 99283

== ENCOUNTER 2018-10-09 19:02 | Emergency (ER) | payer OTHER, SELFPAY ==
[2018-10-09 19:03] VITALS: BP 131/104; PULSE 137; RESP 20; TEMP 37.5; O2SAT 95; BMI 22.3
--- NOTE | 2018-10-09 19:25 | RAD_ITS ---
STUDY: X-RAY - LEFT SHOULDER REASON FOR EXAM: Male, 48 years old. Trauma TECHNIQUE: 4 view(s) of the shoulder. COMPARISON: None. FINDINGS: There is no evidence of fracture or dislocation. There are no significant degenerative changes. There are no radiodense foreign bodies. There is moderate soft tissue swelling over the acromioclavicular joint. RAD/Shoulder min 2 Views IMPRESSION: No fracture or dislocation. Moderate soft tissue swelling over the acromioclavicular joint. Electronically Signed: Fercho Khan, at 19:51 EDT Tel , Service support ,
--- NOTE | 2018-10-09 20:47 | ED.DEP ---
ED Disposition - Plan for ED Patient: Instructions: ED Sprain Shoulder, ED Torn Rotator Cuff Prescriptions: Oxycodone HCl/Acetaminophen [Percocet 5/325] 1 tablet PO Q6H PRN PRN 3 Days #12 tablet PRN Reason: Pain Referrals: [facility] [GROUP OF PHYSICIANS] - Chi Zambrano MD [STAFF PHYSICIAN] -
--- NOTE | 2018-10-09 20:52 | ED.VISSUMM ---
- ER Visit Summary Date of Service: 10/09/18 Chief Complaint: Left shoulder injury History of Present Illness: The patient is a 48 M presenting with left shoulder injury. Patient was at work. 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 He states his hand slipped and his arm jerked backward. He had sudden pain in his left shoulder. He has had progressively worsening pain since that time. Denies other injuries. Physical Examination: Vitals are stable. Patient is afebrile. Alert no acute distress. HEENT exam is unremarkable. Neck is nontender Lungs are clear and equal bilaterally. Heart is regular rate and rhythm. Abdomen is soft nontender nondistended. Extremities diffuse tenderness anterior left shoulder. Painful abduction left arm. Neurovascularly intact distally Skin is warm and dry. No focal neurologic deficit. Remainder of exam is unremarkable. Emergency Department Course and Treatment: Left shoulder x-ray shows no fracture or dislocation. Moderate soft tissue swelling over the acromioclavicular joint. Patient was given morphine, Zofran IM. Concern for rotator cuff tear. Patient is advised to follow-up with [facility] care and orthopedics. He is given a sling. He is given a prescription for Percocet. Advised return to ED for worsening complaints. Disposition: Discharge home Impression: Left shoulder sprain, concern for rotator cuff tear This note was generated with [employer] dictation software. It may contain incorrect words, spelling, and punctuation that were not noted in review of the chart prior to signing ED Disposition - Plan for ED Patient: Disposition: Home or Assisted Living Instructions: ED Torn Rotator Cuff, ED Sprain Shoulder Prescriptions: Oxycodone HCl/Acetaminophen [Percocet 5/325] 1 tablet PO Q6H PRN PRN 3 Days #12 tablet PRN Reason: Pain Referrals: [facility] [GROUP OF PHYSICIANS] - Chi Zambrano MD [STAFF PHYSICIAN] -
[2018-10-09] MEDS: morphine 8 MG/ML Syringe IM (20:56)
[2018-10-09 20:57] VITALS: PULSE 91
[2018-10-09] MEDS: Ondansetron 4 MG/2 ML Vial IM (20:57)
== END 2018-10-09 21:26 | disposition home or self-care (01) ==
PROVIDERS: Emergency Provider Emergency Medicine
DX: S43.402A Unspecified sprain of left shoulder joint, initial encounter (principal); X50.0XXA Overexertion from strenuous movement or load, initial encounter; Y93.89 Activity, other specified; Y92.89 Other specified places as the place of occurrence of the external cause; Y99.0 Civilian activity done for income or pay
CPT/HCPCS: 73030; 96372; 99283; J2405

== ENCOUNTER → 2018-10-26 | Outpatient (CLI) | payer OTHER, SELFPAY ==
[2018-10-12 08:31] VITALS: BMI 22.3
[2018-10-24 15:27] VITALS: BMI 22.3
--- NOTE | 2018-10-26 06:42 | MRI_ITS ---
STUDY: MRI LEFT SHOULDER REASON FOR EXAM: Left shoulder pain, pulling injury 1 week ago. TECHNIQUE: Standardized fat and water weighted pulse sequences were obtained in all 3 orthogonal planes. COMPARISON: Radiographs 10/09/2018. FINDINGS: There is supraspinatus tendinosis and a full-thickness tear of the distal anterior supraspinatus tendon (T2 coronal images 5-8) measuring approximately 2.5 x 1.7 cm (length x width). There is infraspinatus tendinosis and a small cyst at the musculotendinous junction without discrete tendon tear. Normal subscapularis tendon. Normal teres minor tendon. There is mild atrophy with mild partial fat replacement of the supraspinatus, infraspinatus and teres minor muscles (T2 sagittal images 1-7). Normal subscapularis muscle. There is a glenohumeral joint effusion. There are small humeral marginal osteophytes. There is a tear with nonvisualization of the intracapsular long biceps tendon. There is a tear of the posterior aspect of the superior labrum (T2 coronal images 13-15). There is focal synovitis at the posterior aspect of the axillary bursa (T2 coronal images 16, 17). There is acromioclavicular arthrosis without substantial undersurface osteophytes (T2 sagittal images 8, 9). There is a Type II morphology (curved), with a neutral orientation. There is subacromial-subdeltoid bursal fluid. Normal visualized coracohumeral and coracoacromial ligaments. Normal deltoid muscle. Normal trapezius muscle. MRI/Upper Ext Joint Only(Routine) IMPRESSION: Full-thickness tear and tendinosis of the supraspinatus tendon. Infraspinatus tendinosis. Mild atrophy of the supraspinatus, infraspinatus and teres minor muscles. Tear of the long biceps tendon. Tear of the posterior aspect of the superior labrum. Acromioclavicular arthrosis. Focal synovitis at the posterior aspect of the axillary bursa. Glenohumeral joint fluid communicating with the subacromial-subdeltoid bursa. Electronically Signed: Delon Moreno MD at 8:36 EDT Tel , Service support ,
== END | disposition home or self-care (01) ==
LOC: MRI 06:33
PROVIDERS: Family Provider Family Medicine Geriatric Medicine; PCP Family Medicine Geriatric Medicine; Referring Provider Physician Assistant Surgical; Visit Provider Physician Assistant Surgical
DX: S46.912A Strain of unspecified muscle, fascia and tendon at shoulder and upper arm level, left arm, initial encounter (principal)
CPT/HCPCS: 73221

== ENCOUNTER → 2019-03-13 | Outpatient (CLI) | payer OTHER, SELFPAY ==
[2019-01-23 11:42] VITALS: BMI 22.3
--- NOTE | 2019-03-13 14:25 | RAD_ITS ---
STUDY: X-RAY CHEST REASON FOR EXAM: Male, 49 years old. Preoperative exam TECHNIQUE: Frontal view of the chest COMPARISON: None. FINDINGS: The lungs are hyperinflated, but clear. There are no pleural effusions. There is no pneumothorax. The heart is normal in size. The visualized osseous structures are within normal limits. RAD/Chest PA and Lateral IMPRESSION: No acute thoracic pathology. Electronically Signed: Chi Bray, at 14:57 EST Tel , Service support ,
--- NOTE | 2019-03-13 14:26 | EKG12_ITS ---
Test Reason : PRE OP Blood Pressure : / mmHG Vent. Rate : 101 BPM Atrial Rate : 101 BPM P-R Int : 140 ms QRS Dur : 088 ms QT Int : 336 ms P-R-T Axes : 074 049 060 degrees QTc Int : 435 ms Sinus tachycardia Septal infarct , age undetermined Abnormal ECG Confirmed by DOMONIQUE QUINTEROS, ARNALDO ([id number]), science editor SIL CARNEY ([id number]) on 03/19/2019 1:15:14 PM Referred By: Hawa King Confirmed By:CATARINA YOUSSEF MD
[2019-03-13 15:21] LABS: Hematocrit 46.8 % (40-54); Hemoglobin 15.4 g/dL (13.0-16.5); Mean Corp Hgb Conc 32.9 g/dL (32-36); Mean Corpuscular Hgb 31.6 pg (27.0-32.0); Mean Corpuscular Volume 96.1 fL (80-94); Mean Platelet Vol. 10.4 fl (6.2-12.0); Platelet Count 221 K/mm3 (150-450); RBC Distribution Width CV 12.4 % (11.6-14.6); RBC Distribution Width SD 44.2 fl (35.1-43.9); Red Blood Count 4.87 M/mm3 (4.6-6.2); White Blood Count 6.9 K/mm3 (4.4-11.0)
[2019-03-13 15:57] LABS: Anion Gap 10 (5-15); BUN 6 mg/dL (7-18); BUN/Creat Ratio 6.7 RATIO (10-20); Calcium,Total 9.2 mg/dL (8.5-10.1); Chloride 101 mmol/L (98-107); Creatinine, Serum 0.89 mg/dL (0.70-1.30); EST Glomerular Filtration Rate 97 mL/min (>60); Est Glom Filt Rate - Afr Amer 117 mL/min (>60); Glucose 100 mg/dL (74-106); Potassium 3.8 mmol/L (3.5-5.1); Sodium Level 140 mmol/L (136-145)
== END | disposition home or self-care (01) ==
PROVIDERS: Family Provider Family Medicine Geriatric Medicine; PCP Family Medicine Geriatric Medicine; Referring Provider Physician Assistant; Visit Provider Physician Assistant
DX: Z01.818 Encounter for other preprocedural examination (principal)
CPT/HCPCS: 36415; 71046; 80048; 85027; 93005